=== PATIENT | male | born 1940 | race Two or more races ===

== ENCOUNTER 2019-09-04 05:45 | Day surgery (SDC) | payer OTHER ==
[~2019-09-04 05:45] MED LIST: CARVEDILOL3.125 MG PO
== END 2019-09-04 17:06 | disposition home or self-care (01) ==
LOC: CIR.AMB 05:45
DX: K40.90 Unilateral inguinal hernia, without obstruction or gangrene, not specified as recurrent (principal)

== ENCOUNTER 2019-09-06 08:43 | Emergency (ER) | payer OTHER ==
[~2019-09-06] VITALS: Ht 182.9 cm; Wt 81.6 kg
[2019-09-06] MEDS ORDERED: DURICEF PO (09:13)
== END 2019-09-06 14:31 | disposition home or self-care (01) ==
LOC: ER 08:43
DX: R33.8 Other retention of urine (principal); Z98.890 Other specified postprocedural states

== ENCOUNTER 2019-09-17 16:59 | Outpatient (CLI) | payer OTHER ==
[~2019-09-17 16:59] MED LIST changes: +DURICEF PO
== END 2019-09-17 18:33 | disposition home or self-care (01) ==
LOC: LAB 16:59
DX: N30.00 Acute cystitis without hematuria (principal)

== ENCOUNTER 2019-09-23 09:03 | Outpatient (CLI) | payer OTHER | END 2019-09-23 09:07 | disposition home or self-care (01) | LOC: SONOGRAMA 09:03 → MAMO-SONO 09:15 | DX: N40.1 Benign prostatic hyperplasia with lower urinary tract symptoms (principal) ==

== ENCOUNTER 2019-10-13 06:46 | Day surgery (SDC) | payer OTHER ==
[~2019-10-13] VITALS: Ht 190.5 cm; Wt 79.4 kg
== END 2019-10-14 08:00 | disposition home or self-care (01) ==
LOC: CIR.AMB 06:46 → O/R 13:34 → CIR.AMB 13:34 → SURH 13:34 → CIR.AMB 10-14 08:00 → SURH 10-14 10:32 → O/R 10-14 10:32
DX: N40.1 Benign prostatic hyperplasia with lower urinary tract symptoms (principal); N30.00 Acute cystitis without hematuria; R33.8 Other retention of urine; N50.89 Other specified disorders of the male genital organs; N49.2 Inflammatory disorders of scrotum; I10 Essential (primary) hypertension

== ENCOUNTER 2021-04-27 10:06 | Emergency (ER) | payer OTHER ==
[~2021-04-27] VITALS: Ht 190.5 cm; Wt 68.0 kg
[2021-04-27] MEDS ORDERED: ELIQUIS5 MG (10:12)
[2021-04-27] MEDS ORDERED: AMLODIPINE-OLM1 EAC2 (10:13)
== END 2021-04-27 23:45 | disposition home or self-care (01) ==
LOC: ER 10:06
DX: K59.09 Other constipation (principal); E86.0 Dehydration; E87.8 Other disorders of electrolyte and fluid balance, not elsewhere classified; Z74.01 Bed confinement status

== ENCOUNTER 2021-10-07 15:16 | Inpatient (IN) | payer OTHER ==
[~2021-10-07] VITALS: Ht 172.7 cm; Wt 56.7 kg
[~2021-10-07 15:16] MED LIST changes: +AMLODIPINE-OLM1 EAC2; +ELIQUIS5 MG
[2021-10-21] MEDS ORDERED: ELIQUIS5 MG PO (14:50)
[2021-10-21] MEDS ORDERED: TAMS0.4C PO (14:50)
[2021-10-21] MEDS ORDERED: CARVEDILOL3.125 MG PO (14:51)
[2021-10-21] MEDS ORDERED: AMOX-CLAV 875-1 EAC1 PO (14:51)
[2021-10-21] MEDS ORDERED: AMLODIPINE BESYL5 MG PO (14:51)
[2021-10-21] MEDS ORDERED: TUSSIN DM LIQU118 ML PO (14:51)
[2021-10-21] MEDS ORDERED: INTESTINEX680 M1 PO (14:51)
== END 2021-10-21 22:49 | DRG 689 ==
LOC: ER 15:16 → MEDI 10-08 12:44
PROVIDERS: ADMIT Internal Medicine; ATTEND Internal Medicine
PROC: 0D20XUZ Change Feeding Device in Upper Intestinal Tract, External Approach (ICD-10-PCS; 2021-10-12)
PROC: 02HV33Z Insertion of Infusion Device into Superior Vena Cava, Percutaneous Approach (ICD-10-PCS; principal; 2021-10-15)
PROC: 3E0F7SF Introduction of Other Gas into Respiratory Tract, Via Natural or Artificial Opening (ICD-10-PCS; 2021-10-15)
DX: N39.0 Urinary tract infection, site not specified (principal); G93.41 Metabolic encephalopathy; J69.0 Pneumonitis due to inhalation of food and vomit; R65.11 Systemic inflammatory response syndrome (SIRS) of non-infectious origin with acute organ dysfunction; E87.1 Hypo-osmolality and hyponatremia; I48.21 Permanent atrial fibrillation; K94.23 Gastrostomy malfunction; I69.354 Hemiplegia and hemiparesis following cerebral infarction affecting left non-dominant side; I69.392 Facial weakness following cerebral infarction; R13.19 Other dysphagia; E86.0 Dehydration; E83.51 Hypocalcemia; N40.1 Benign prostatic hyperplasia with lower urinary tract symptoms; B96.20 Unspecified Escherichia coli [E. coli] as the cause of diseases classified elsewhere; I11.9 Hypertensive heart disease without heart failure; I25.10 Atherosclerotic heart disease of native coronary artery without angina pectoris; Z79.01 Long term (current) use of anticoagulants; Z74.01 Bed confinement status

== ENCOUNTER 2021-10-23 05:47 | Emergency (ER) | payer OTHER ==
[~2021-10-23] VITALS: Ht 182.9 cm; Wt 74.8 kg
[~2021-10-23 05:47] MED LIST changes: +AMLODIPINE BESYL5 MG PO; +AMOX-CLAV 875-1 EAC1 PO; +ELIQUIS5 MG PO; +INTESTINEX680 M1 PO; +TAMS0.4C PO; +TUSSIN DM LIQU118 ML PO
== END 2021-10-23 14:27 | disposition home or self-care (01) ==
LOC: ER 05:47
DX: J06.9 Acute upper respiratory infection, unspecified (principal); R50.9 Fever, unspecified; Z11.52 Encounter for screening for COVID-19